=== PATIENT | male | born 1960 | race Caucasian/White ===

== ENCOUNTER 2020-10-30 10:59 | Inpatient (IN) | payer BC ==
[~2020-10-30] VITALS: Ht 177.8 cm; Wt 77.6 kg
[~2020-10-30 10:59] MED LIST: DOXYCYCLINE MO100 MG PO; KEFLEX CAP 500500 MG PO; NORCO 5-325 TA1 EACH PO; VIBRAMYCIN100 MG PO
[2020-10-30 13:12] LABS: HEMOGLOBIN 15.4 gm/dl (14.0-17.5); RED BLOOD COUNT 5.31 M/UL (4.20-5.50); WHITE BLOOD COUNT 12.7 K/UL (4.5-11.0)
[2020-10-30 15:18] LABS: RBC (AUTOMATED) 111300 (0-2000); WBC (AUTOMATED) 3961 (0-200)
[2020-10-30] MEDS ORDERED: LIPITOR20 MG PO (15:21)
[2020-10-30] MEDS ORDERED: NORVASC5 MG PO (15:21)
[2020-10-30] MEDS ORDERED: FAMCICLOVIR500 MG PO (15:22)
[2020-10-30] MEDS ORDERED: VITAMIN C 500500 MG PO (16:21)
[2020-10-30] MEDS ORDERED: FISH OIL 1,0001 EACH PO (16:21)
[2020-10-30] MEDS ORDERED: VITAMIN D350 MC3 PO (16:22)
[2020-10-30] MEDS ORDERED: ASPIRIN EC81 MG PO (16:22)
[2020-10-30] MEDS ORDERED: ZINC50 M2 PO (16:22)
[2020-10-31 05:04] LABS: HEMOGLOBIN 13.9 gm/dl (14.0-17.5)
[2020-10-31 05:11] LABS: RED BLOOD COUNT 4.74 M/UL (4.20-5.50); WHITE BLOOD COUNT 9.5 K/UL (4.5-11.0)
[2020-10-31 12:16] LABS: PROTEIN, BODY FLUID 2.6 g/dL (.); URIC ACID, BODY FLUID 7.8 mg/dL (.)
[2020-11-01 11:03] LABS: HEMOGLOBIN 12.4 gm/dl (14.0-17.5); RED BLOOD COUNT 4.28 M/UL (4.20-5.50)
[2020-11-01 11:38] LABS: WHITE BLOOD COUNT 21.3 K/UL (4.5-11.0)
[2020-11-02 02:54] LABS: WHITE BLOOD COUNT 20.6 K/UL (4.5-11.0)
[2020-11-02 03:08] LABS: HEMOGLOBIN 10.4 gm/dl (14.0-17.5); RED BLOOD COUNT 3.61 M/UL (4.20-5.50)
[2020-11-03 03:27] LABS: HEMOGLOBIN 10.1 gm/dl (14.0-17.5); RED BLOOD COUNT 3.48 M/UL (4.20-5.50); WHITE BLOOD COUNT 21.3 K/UL (4.5-11.0)
[2020-11-04 03:36] LABS: HEMOGLOBIN 10.9 gm/dl (14.0-17.5); RED BLOOD COUNT 3.75 M/UL (4.20-5.50); WHITE BLOOD COUNT 23.6 K/UL (4.5-11.0)
[2020-11-05 05:21] LABS: HEMOGLOBIN 11.5 gm/dl (14.0-17.5); RED BLOOD COUNT 3.97 M/UL (4.20-5.50)
[2020-11-05 05:37] LABS: WHITE BLOOD COUNT 30.3 K/UL (4.5-11.0)
[2020-11-05 05:40] LABS: BUN/CREATININE RATIO 31 (0-10)
[2020-11-06 06:52] LABS: HEMOGLOBIN 12.6 gm/dl (14.0-17.5); RED BLOOD COUNT 4.28 M/UL (4.20-5.50); WHITE BLOOD COUNT 27.7 K/UL (4.5-11.0)
[2020-11-06 07:12] LABS: BUN/CREATININE RATIO 25 (0-10)
[2020-11-07 07:38] LABS: HEMOGLOBIN 13.2 gm/dl (14.0-17.5); RED BLOOD COUNT 4.47 M/UL (4.20-5.50)
[2020-11-07 07:50] LABS: WHITE BLOOD COUNT 18.9 K/UL (4.5-11.0)
[2020-11-07 09:11] LABS: BUN/CREATININE RATIO 20 (0-10)
[2020-11-08 07:05] LABS: HEMOGLOBIN 13.3 gm/dl (14.0-17.5); RED BLOOD COUNT 4.54 M/UL (4.20-5.50); WHITE BLOOD COUNT 17.2 K/UL (4.5-11.0)
[2020-11-08 07:56] LABS: BUN/CREATININE RATIO 20 (0-10)
[2020-11-09 07:01] LABS: HEMOGLOBIN 12.3 gm/dl (14.0-17.5); RED BLOOD COUNT 4.27 M/UL (4.20-5.50); WHITE BLOOD COUNT 14.8 K/UL (4.5-11.0)
[2020-11-09 07:26] LABS: BUN/CREATININE RATIO 25 (0-10)
[2020-11-10 02:10] LABS: HEMOGLOBIN 11.4 gm/dl (14.0-17.5); RED BLOOD COUNT 3.86 M/UL (4.20-5.50); WHITE BLOOD COUNT 13.7 K/UL (4.5-11.0)
[2020-11-10 02:29] LABS: BUN/CREATININE RATIO 23 (0-10)
[2020-11-11 06:23] LABS: RED BLOOD COUNT 3.77 M/UL (4.20-5.50); WHITE BLOOD COUNT 12.7 K/UL (4.5-11.0)
[2020-11-12 07:21] LABS: HEMOGLOBIN 10.8 gm/dl (14.0-17.5); RED BLOOD COUNT 3.65 M/UL (4.20-5.50); WHITE BLOOD COUNT 11.1 K/UL (4.5-11.0)
[2020-11-12] MEDS ORDERED: HYDROCODON-ACE1 EAC4 PO (09:38)
[2020-11-12] MEDS ORDERED: AUGMENTIN 875-1 EACH PO (09:38)
[2020-11-12] MEDS ORDERED: AMOXICILLIN875 MG PO (10:07)
== END 2020-11-12 12:01 | disposition home or self-care (01) | DRG 853 ==
LOC: ER1 10:59 → PROG CARE 14:54 → M/S 14:54 → CDU 14:54 → PROG CARE 10-31 17:29 → CCU 11-04 12:00 → M/S 11-05 18:29
PROVIDERS: Emergency Medicine; Internal Medicine; Internal Medicine Infectious Disease; Physician Assistant; Physician Assistant Medical; ADMIT Internal Medicine
PROC: 0M9P0ZZ Drainage of Left Knee Bursa and Ligament, Open Approach (ICD-10-PCS; 2020-10-31)
PROC: 0S9D0ZZ Drainage of Left Knee Joint, Open Approach (ICD-10-PCS; 2020-10-31)
PROC: B24BZZ4 Ultrasonography of Heart with Aorta, Transesophageal (ICD-10-PCS; principal; 2020-11-01)
PROC: 0J9P00Z Drainage of Left Lower Leg Subcutaneous Tissue and Fascia with Drainage Device, Open Approach (ICD-10-PCS; 2020-11-03)
DX: A40.0 Sepsis due to streptococcus, group A (principal); R65.21 Severe sepsis with septic shock; N17.0 Acute kidney failure with tubular necrosis; J96.01 Acute respiratory failure with hypoxia; L03.116 Cellulitis of left lower limb; M00.862 Arthritis due to other bacteria, left knee; E87.2 Acidosis; E87.1 Hypo-osmolality and hyponatremia; Z20.822 Contact with and (suspected) exposure to COVID-19; E78.5 Hyperlipidemia, unspecified; E87.5 Hyperkalemia; I48.0 Paroxysmal atrial fibrillation; K21.9 Gastro-esophageal reflux disease without esophagitis; N20.0 Calculus of kidney; E78.00 Pure hypercholesterolemia, unspecified; R73.9 Hyperglycemia, unspecified; E86.1 Hypovolemia; I08.1 Rheumatic disorders of both mitral and tricuspid valves; E83.42 Hypomagnesemia; I10 Essential (primary) hypertension; Z79.01 Long term (current) use of anticoagulants; Z90.49 Acquired absence of other specified parts of digestive tract; Z88.0 Allergy status to penicillin; Z82.49 Family history of ischemic heart disease and other diseases of the circulatory system
CPT/HCPCS: ECHO; 36415; 36600; 71045; 73564; 73718; 76705; 80048; 80053; 80202; 81001; 82436; 82550; 82553; 82570; 82803; 82945; 82962; 83036; 83605; 83615; 83735; 83874; 84133; 84156; 84157; 84300; 84484; 84550; 85025; 85027; 85652; 86140; 87040; 87070; 87077; 87081; 87086; 87186; 87205; 93005; 93306; 93971; 99285; C9113; J0295; J0692; J1100; J1170; J1200; J1940; J1956; J2001; J2020; J2185; J2250; J2270; J2274; J2405; J2704; J2795; J3010; J3370; J3475; J7030; J7050; J7070; J7120; P9047; U0002

== ENCOUNTER → 2020-11-17 | Outpatient (CLI) | payer BC ==
[~2020-11-17] MED LIST changes: +AMOXICILLIN875 MG PO; +ASPIRIN EC81 MG PO; +AUGMENTIN 875-1 EACH PO; +FAMCICLOVIR500 MG PO; +FISH OIL 1,0001 EACH PO; +HYDROCODON-ACE1 EAC4 PO; +LIPITOR20 MG PO; +NORVASC5 MG PO; +VITAMIN C 500500 MG PO; +VITAMIN D350 MC3 PO; +ZINC50 M2 PO
[2020-11-17 10:27] LABS: HEMOGLOBIN 10.4 gm/dl (14.0-17.5); RED BLOOD COUNT 3.43 M/UL (4.20-5.50); WHITE BLOOD COUNT 8.5 K/UL (4.5-11.0)
== END ==
LOC: LAB 09:43
PROVIDERS: Internal Medicine Infectious Disease
DX: E87.5 Hyperkalemia (principal); L03.90 Cellulitis, unspecified
CPT/HCPCS: 36415; 80053; 85025; 86140

== ENCOUNTER → 2020-12-05 | Outpatient (CLI) | payer BC | LOC: LAB 08:29 | DX: M00.9 Pyogenic arthritis, unspecified (principal) | CPT/HCPCS: 36415; 86140 ==

== ENCOUNTER → 2020-12-22 | Outpatient (CLI) | payer BC | LOC: MRI 13:45 | DX: R60.0 Localized edema (principal); L53.8 Other specified erythematous conditions; R93.6 Abnormal findings on diagnostic imaging of limbs | CPT/HCPCS: 36415; 73720; 82565; A9577 ==

== ENCOUNTER → 2021-02-12 | Outpatient (CLI) | payer BC | LOC: HEART 5 12:38 | DX: I51.7 Cardiomegaly (principal); I51.9 Heart disease, unspecified | CPT/HCPCS: 93306 ==

== ENCOUNTER → 2021-11-05 | Outpatient (CLI) | payer BC | LOC: EXRD 08:00 | DX: R10.11 Right upper quadrant pain (principal); N20.0 Calculus of kidney | CPT/HCPCS: 76700 ==